=== PATIENT | female | born 1975 | race Caucasian/White ===

== ENCOUNTER 2016-09-19 08:00 | Outpatient (CLI) | payer OTHER | END 2016-09-19 23:59 | DX: R30.0 Dysuria (principal) ==

== ENCOUNTER 2017-05-03 17:36 | Outpatient (CLI) | payer OTHER ==
[2017-05-03] MEDS ORDERED: IOPAMIDOL-300 100 ML VIAL ONE (17:48)
[2017-05-03] MEDS ORDERED: IOPAMIDOL-300 50 ML VIAL ONE (17:48)
[2017-05-03] MEDS ORDERED: IOPAMIDOL-300 100 ML VIAL IVP ONE (20:27)
[2017-05-03] MEDS ORDERED: IOPAMIDOL-300 50 ML VIAL PO ONE (20:27)
--- NOTE | 2017-05-03 20:41 | CT Preliminary Report ---
Exam: CT ABDOMEN/PELVIS W/ IMPRESSION: Negative abdomen and pelvis CT. No acute solid or hollow viscus organ abnormalities to ac count for the patient's presentation. [facility] SITE ID: [id number]
--- NOTE | 2017-05-03 20:43 | CT Report ---
EXAM: CT ABDOMEN AND PELVIS EXAM DATE: 05/03/2017 07:56 PM. CLINICAL HISTORY: Abdominal pain COMPARISONS: None. TECHNIQUE: Routine helical CT imaging was performed through the abdomen and pelvis. IV contrast: 50 M L ISOVUE 300. Enteric contrast: Positive. Reconstructions: Coronal and sagittal. In accordance with CT protocol optimization, one or more of the following dose reduction techniques w ere utilized for this exam: automated exposure control, adjustment of mA and/or KV based on patient s ize, or use of iterative reconstructive technique. FINDINGS: Lung Bases: Unremarkable. Liver: Normal. No masses. Gallbladder/Bile Ducts: Unremarkable. Spleen: There is borderline splenomegaly. Pancreas: Normal. Adrenal Glands: Normal. Kidneys: Normal. No masses or hydronephrosis. Peritoneal Cavity/Bowel: Normal. No free fluid, free air or adenopathy. No masses or acute inflammato ry process. The appendix is well visualized and normal. Pelvic Organs: Patient has undergone . The uterus and adnexa are displaced anteriorly. The u rinary bladder is unremarkable. Vasculature: No aneurysms or other significant abnormality. Bones: No significant abnormality. Other: None. IMPRESSION: Negative abdomen and pelvis CT. No acute solid or hollow viscus organ abnormalities to ac count for the patient's presentation. [facility] Referring Provider Line: [phone] SITE ID: [id number]
== END 2017-05-03 17:37 | disposition home or self-care (01) ==
LOC: DI 17:36
PROVIDERS: ATTEND Family Medicine
DX: R10.31 Right lower quadrant pain (principal); R10.11 Right upper quadrant pain
CPT/HCPCS: 74177; Q9967

== ENCOUNTER 2017-05-07 19:54 | Outpatient (CLI) | payer OTHER | END 2017-05-07 19:55 | disposition home or self-care (01) | LOC: DI 19:54 | PROVIDERS: ATTEND Family Medicine | DX: Z53.9 Procedure and treatment not carried out, unspecified reason (principal) ==

== ENCOUNTER 2017-05-12 12:59 | Outpatient (CLI) | payer OTHER ==
--- NOTE | 2017-05-12 16:06 | Ultrasound Preliminary Report ---
Exam: US ABDOMEN LIMITED IMPRESSION: 1. Small gallstone versus sludge ball or gallbladder wall polyp without other findings of acute dhiraj cystitis. 2. No biliary dilatation. 3. Nonspecific echogenic lesion in the liver abutting dhaval hepatis. Differential diagnosis includes focal fat, hemangioma, or other nonspecific mass. This finding is not clearly identified on the abdom en CT from 05/03/2017 [facility] SITE ID: [id number]
--- NOTE | 2017-05-12 16:09 | Ultrasound Report ---
EXAM: ABDOMEN ULTRASOUND LIMITED, RUQ EXAM DATE: 05/12/2017 03:36 PM. CLINICAL HISTORY: RUQ PAIN. COMPARISON: CT 05/03/2017. TECHNIQUE: Real-time scanning was performed with static images obtained. FINDINGS: Liver: There is a cyst in the left lobe of the liver measuring 0.4 cm in diameter. The parenchyma is heterogeneous. There is an ill-defined echogenic lesion in the left lobe measuring 1.9 x 1.0 x 1.7 cm . No intrahepatic biliary dilatation. 16.8 cm. Main portal vein flow: Hepatopetal. Gallbladder: There is a small non-shadowing density in the gallbladder neck consistent with a non-sha dowing stone, polyp or sludge ball. This does not appear to move. Negative ultrasound Greenberg sign. No shadowing gallstones. Gallbladder wall thickness normal at 1.8 mm. Biliary System: CBD measures 4 mm. No intrahepatic or extrahepatic ductal dilatation. Other: None. IMPRESSION: 1. Small gallstone versus sludge ball or gallbladder wall polyp without other findings of acute dhiraj cystitis. 2. No biliary dilatation. 3. Nonspecific echogenic lesion in the liver abutting dhaval hepatis. Differential diagnosis includes focal fat, hemangioma, or other nonspecific mass. This finding is not clearly identified on the abdom en CT from 05/03/2017 [facility] Referring Provider Line: [phone] SITE ID: [id number]
== END 2017-05-12 13:00 | disposition home or self-care (01) ==
LOC: DI 12:59
PROVIDERS: ATTEND Family Medicine
DX: K76.9 Liver disease, unspecified (principal)
CPT/HCPCS: 76705

== ENCOUNTER 2017-06-08 11:45 | Outpatient (CLI) | payer OTHER ==
--- NOTE | 2017-06-11 15:26 | Mammography Report ---
DATE OF SERVICE: 06/08/2017 DIGITAL SCREENING MAMMOGRAM: 06/08/2017 CLINICAL INDICATION: A 42-year-old with history of benign biopsy, history of late childbearing, for screening. COMPARISON: 02/2016, 11/2013, 05/2013, 11/2012. TECHNIQUE: Routine CC and MLO projections were obtained of the breasts. FINDINGS: The breasts demonstrate scattered fibroglandular densities bilaterally. Biopsy marker in the right lower central breast is stable. No suspicious masses, clustered microcalcifications, or regions of architectural distortion are identified. IMPRESSION: BENIGN FINDINGS. RECOMMENDATION: Routine annual screening unless otherwise clinically indicated. BIRADS CATEGORY 2 - BENIGN FINDINGS. STANDARD QUALIFYING STATEMENTS: 1. This examination was reviewed with the aid of Computer-Aided Detection (CAD). 2. A negative or benign imaging report should not delay biopsy if clinically suspicious findings are present. Consider surgical consultation if warranted. More than 5% of cancers are not identified by imaging. 3. Dense breasts may obscure an underlying neoplasm. TD: 06/11/2017 16:25
== END 2017-06-08 11:46 | disposition home or self-care (01) ==
LOC: DI 11:45
PROVIDERS: ATTEND Family Medicine
DX: Z12.31 Encounter for screening mammogram for malignant neoplasm of breast (principal)
CPT/HCPCS: 77067

== ENCOUNTER 2017-06-21 10:10 | Outpatient (CLI) | payer OTHER | END 2017-06-21 10:11 | disposition home or self-care (01) | LOC: LAB.WCP 10:10 | PROVIDERS: ATTEND Family Medicine | DX: R31.9 Hematuria, unspecified (principal) | CPT/HCPCS: 87086 ==

== ENCOUNTER 2017-06-22 07:29 | Day surgery (SDC) | payer OTHER ==
[~2017-06-22 07:29] MED LIST: ceFAZolin 2 GM/50 ML 2 GM/50 ML BAG IV ONE
[2017-06-22 07:56] LABS: HCG UR QUAL NEGATIVE
[2017-06-22] MEDS ORDERED: LACTATED RINGERS 1,000 ML IV ONE ×2 (08:06→09:40)
[2017-06-22] MEDS ORDERED: BUPIVACAINE 0.25%-EPI 1:200000 PF 30 ML VIAL SUBQ ONE ×2 (09:00)
[2017-06-22] MEDS ORDERED: MIDAZOLAM 2 MG/2 ML VIAL IVP ONE (09:00)
[2017-06-22] MEDS ORDERED: PROPOFOL 200 MG/20 ML VIAL IVP ONE (09:00)
[2017-06-22] MEDS ORDERED: NEOSTIGMINE 1 MG/1 ML 10 ML MDV IVP ONE (09:00)
[2017-06-22] MEDS ORDERED: DEXAMETHASONE 4 MG/ML VIAL IVP ONE (09:00)
[2017-06-22] MEDS ORDERED: ROCURONIUM 50 MG/5 ML VIAL IVP ONE (09:00)
[2017-06-22] MEDS ORDERED: GLYCOPYRROLATE 1 MG/5 ML VIAL IVP ONE (09:00)
[2017-06-22] MEDS ORDERED: KETOROLAC 30 MG/ML VIAL IVP ONE (09:00)
[2017-06-22] MEDS ORDERED: ONDANSETRON 4 MG/2 ML VIAL IVP ONE (09:00)
[2017-06-22] MEDS ORDERED: IOTHALAMATE MEGLUMINE 50 ML VIAL IVP ONE ×2 (09:00)
[2017-06-22] MEDS ORDERED: fentaNYL 100 MCG/2 ML VIAL IVP ONE (09:00)
[2017-06-22] MEDS: HYDROmorphone 1 MG/ML SYRINGE ONE ×3 (10:13→10:23)
[2017-06-22] MEDS ORDERED: ONDANSETRON 4 MG/2 ML VIAL ONE (10:30)
--- NOTE | 2017-06-22 10:31 | XRAY Report ---
DATE OF SERVICE: 06/22/2017 INTRAOPERATIVE CHOLANGIOGRAM: 06/22/2017 CLINICAL INDICATION: Cholecystectomy. FINDINGS: Two images of an intraoperative cholangiogram demonstrate opacification of the common bile duct and proximal intrahepatic ducts. Contrast spills freely into the duodenum. No definite choledocholithiasis is identified. 20 seconds of fluoroscopy time was provided to Dr. Guy; 2 spot images obtained. IMPRESSION: INTRAOPERATIVE IMAGING OF CHOLANGIOGRAM. TD: 06/22/2017 10:30 [email or web address]
--- NOTE | 2017-06-22 10:59 | PROCEDURE REPORT ---
DATE OF SERVICE: 06/22/2017 Physician: Art Guy MD PREOPERATIVE DIAGNOSIS: Symptomatic cholecystitis with cholelithiasis. POSTOPERATIVE DIAGNOSIS: Symptomatic cholecystitis with cholelithiasis. PROCEDURE PERFORMED: Laparoscopic cholecystectomy with intraoperative cholangiogram. OPERATING SURGEON: Dr. Guy. ANESTHESIA: General. INDICATIONS FOR PROCEDURE: The patient is a 42-year-old female who has been having intermittent right upper quadrant abdominal pain. She had an abdominal ultrasound, which revealed a stone versus polyp versus sludge in the neck of the gallbladder. Pain is in right upper quadrant, radiating to her back, consistent with chronic cholecystitis. FINDINGS AT SURGERY: The patient had a chronically inflamed gallbladder. She had a normal intraoperative cholangiogram. PROCEDURE: After informed consent was obtained, the patient was taken to the operating room, placed in supine position. General endotracheal anesthesia was administered. The patient's abdomen was then prepped and draped in the usual sterile fashion. An infraumbilical incision was made in the skin using a scalpel. Prior to making abdominal incision, the skin was injected with local anesthesia. A 5 mm Optiview trocar was then inserted through the incision through the fascia and into the abdominal cavity under direct vision. The abdomen was then insufflated. Three 5 mm ports were then placed in right upper quadrant with the 5 mm port at the umbilicus switched to a 12 mm port. The gallbladder fundus was then grasped and lifted anteriorly and superiorly exposing the triangle of Calot. The peritoneum was then scored in this area with the cystic duct and cystic artery then being identified. Cystic artery was isolated, clipped proximally and distally and then divided. Critical view had been obtained. A clip was then placed across the cystic duct/gallbladder junction with the cystic duct, then being incised. Cholangiogram catheter was then inserted and cholangiogram was performed. This showed normal biliary anatomy without any filling defects being present. Catheter was then withdrawn and clips were then placed across the distal cystic duct with it then being divided. Gallbladder was then dissected off the gallbladder bed, placed in an Endobag and removed through the umbilical port. Right upper quadrant was thoroughly irrigated until the return fluid was clear. There was no bleeding noted from the gallbladder bed. The ports were then removed and no bleeding was noted at the port sites with the abdomen then being desufflated. The umbilical fascial defect was closed using 0 Vicryl suture. Skin incisions were closed using 4-0 Monocryl subcuticular stitch. Dermabond was then placed upon the incision site. The patient was then awakened, extubated, and taken from the operating room in stable condition. ESTIMATED BLOOD LOSS: Less than 5 mL COMPLICATIONS: None. CONDITION OF THE PATIENT IN PROCEDURE: Stable. SPECIMENS: Gallbladder and its contents. DRAINS AND PACKS: None. CLASSIFICATION OF WOUND: Clean/contaminated. TD: 06/22/2017 10:58
[2017-06-22] MEDS ORDERED: HYDROcod/ACETAM 5/325 MG TABLET ONE (11:09)
[2017-06-22 12:44] VITALS: BP 125/80
== END 2017-06-22 07:30 | disposition home or self-care (01) ==
LOC: SDS 07:29
PROVIDERS: ATTEND Surgery
PROC: BF11YZZ Fluoroscopy of Biliary and Pancreatic Ducts using Other Contrast (ICD-10-PCS; 2017-06-22)
PROC: 0FT44ZZ Resection of Gallbladder, Percutaneous Endoscopic Approach (ICD-10-PCS; principal; 2017-06-22 08:30)
DX: K80.10 Calculus of gallbladder with chronic cholecystitis without obstruction (principal); K21.9 Gastro-esophageal reflux disease without esophagitis; J45.909 Unspecified asthma, uncomplicated; I10 Essential (primary) hypertension
CPT/HCPCS: 47563; 74300; 81025; A9270; J0690; J1170; J7120; Q9961

== ENCOUNTER 2018-01-28 13:18 | Outpatient (CLI) | payer OTHER ==
[2018-01-28] MEDS ORDERED: IOPAMIDOL-300 100 ML VIAL ONE (13:49)
--- NOTE | 2018-01-28 15:01 | CT Report ---
Reason: DYSPNEA,PALPITATIONS Procedure Date: 01/28/2018 Accession Number: [id number] / [id number] Procedure: CT - Chest Angio (PE) CPT Code: FULL RESULT: EXAM: CT ANGIOGRAM CHEST EXAM DATE: 01/28/2018 02:21 PM. CLINICAL HISTORY: DYSPNEA,PALPITATIONS. COMPARISON: None. TECHNIQUE: Routine helical imaging was performed through the chest in the pulmonary arterial phase. IV Contrast: 80 cc Isovue-300. Reconstructions: Coronal 3-D MIP reconstructions.Sagittal and coronal. In accordance with CT protocol optimization, one or more of the following dose reduction techniques were utilized for this exam: automated exposure control, adjustment of mA and/or KV based on patient size, or use of iterative reconstructive technique. FINDINGS: Pulmonary Arteries: Diagnostic quality: Adequate through the segmental arteries. No evidence for acute or chronic pulmonary emboli. RV/LV is within normal limits. There is no interventricular septal bowing. There is no reflux of contrast material in the IVC. Lungs/Pleura: There is minimal dependent atelectasis. No consolidation, nodules, or edema. No effusions or pneumothorax. Mediastinum: Normal. No cardiac enlargement or adenopathy. Thoracic Aorta: Unremarkable. Upper Abdomen: There is a slightly bulbous appearance of the mid to inferior anterior left kidney, not well evaluated due to the early phase of contrast. It is difficult to exclude a mass. Cholecystectomy is noted. No bone lesions are seen. IMPRESSION: No evidence of pulmonary embolism or acute aortic syndrome. No other thoracic findings are seen to suggest a cause of the patient's symptoms. There is an asymmetric somewhat bulbous appearance of the mid to inferior anterior left kidney, making it difficult to exclude a mass (series 5 images 150 and 151). This is incompletely evaluated in this early phase of contrast. Recommend additional imaging which could include ultrasound, or dedicated renal CT versus MRI. [facility]
[2018-01-28] MEDS ORDERED: IOPAMIDOL-300 100 ML VIAL IVP ONE (15:14)
== END 2018-01-28 13:19 | disposition home or self-care (01) ==
LOC: DI 13:18
PROVIDERS: ATTEND Family Medicine
DX: R06.00 Dyspnea, unspecified (principal); R00.2 Palpitations
CPT/HCPCS: 71275; Q9967

== ENCOUNTER 2018-02-07 10:40 | Outpatient (CLI) | payer OTHER ==
[2018-02-07] MEDS ORDERED: IOPAMIDOL-300 100 ML VIAL ONE (10:49)
[2018-02-07] MEDS ORDERED: IOPAMIDOL-300 100 ML VIAL IVP ONE (11:33)
--- NOTE | 2018-02-07 15:10 | CT Report ---
Reason: ABNORMAL RADIOLOGIC FINDINGS ON LEFT KIDNEY Procedure Date: 02/07/2018 Accession Number: [id number] / [id number] Procedure: CT - Abdomen/Pelvis W/WO CPT Code: FULL RESULT: EXAM: CT ABDOMEN AND PELVIS WITHOUT AND WITH CONTRAST EXAM DATE: 02/07/2018 11:30 AM. HISTORY: ABNORMAL RADIOLOGIC FINDINGS ON LEFT KIDNEY. COMPARISON: 01/28/2018, 05/03/2017. TECHNIQUE: Routine helical CT imaging was performed through the abdomen and pelvis before and after administration of IV contrast: ISOVUE 300 100mL. Enteric contrast: No. Reconstruction: Coronal and sagittal. In accordance with CT protocol optimization, one or more of the following dose reduction techniques were utilized for this exam: automated exposure control, adjustment of mA and/or KV based on patient size, or use of iterative reconstructive technique. FINDINGS: Lung Bases: Unremarkable. Liver: Normal. Gallbladder/Bile Ducts: Cholecystectomy. Spleen: Borderline enlarged. Pancreas: Normal. Adrenal Glands: Normal. 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 No mass. There is a mid cortical bar with mild lobulation in the left kidney accounting for the bulbous appearance. No hydronephrosis or stone. The right kidney is normal. Bladder: Unremarkable. No wall thickening or mass. No evidence of a ureterocele. Uterus and ovaries: Unremarkable. Peritoneal Cavity/Bowel: Normal caliber bowel. No free fluid, free air or adenopathy. Vasculature: No aneurysms or other significant abnormality. Bones: No significant abnormality. IMPRESSION: No renal mass. 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 [facility]
== END 2018-02-07 10:41 | disposition home or self-care (01) ==
LOC: DI 10:40
PROVIDERS: ATTEND Family Medicine
DX: R93.422 Abnormal radiologic findings on diagnostic imaging of left kidney (principal)
CPT/HCPCS: 74178; Q9967

== ENCOUNTER 2018-02-11 09:12 | Emergency (ER) | payer OTHER ==
--- NOTE | 2018-02-11 09:36 | ED Physician Documentation ---
PD HPI CHEST PAIN - Stated complaint Stated Complaint: CHEST PX/TINGLING ON HAND - Chief complaint Chief Complaint: General - History obtained from History obtained from: Patient, Family - History of Present Illness Timing - onset: How many weeks ago (1) Timing - onset during: Rest Timing - duration: Weeks (1) Timing - details: Gradual onset, Still present, Waxing and waning Pain level max: 4 Pain level now: 4 Quality: Pressure, Tightness Location: Substernal Radiation: Neck, Left upper extremity Worsened by: Exertion, Palpation, Position Associated symptoms: Shortness of air Similar symptoms before: No diagnosis Recently seen: Clinic - Additional information Additional information: 43-year-old female with history of asthma has developed some shortness of breath about 2 weeks ago and with that she took her inhaler began to feel some palpitations in her chest and went into see her doctor. She had a positive d- dimer and had a CT scan pulmonary angiogram done which was negative for pulmonary embolism but did show a mass on her left kidney. 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 This morning she developed some substernal chest pain that is radiated up into her neck and into her left arm and this is associated with some shortness of breath. She is producing some phlegm with her cough. Review of Systems Constitutional: denies: Fever, Chills, Myalgias Eyes: denies: Decreased vision Ears: denies: Ear pain Nose: reports: Rhinorrhea / runny nose, Congestion Throat: reports: Sore throat Cardiac: reports: Chest pain / pressure. denies: Palpitations, Pedal edema, Calf pain Respiratory: reports: Dyspnea, Cough GI: denies: Abdominal Pain, Nausea, Vomiting : denies: Dysuria, Frequency PD PAST MEDICAL HISTORY - Past Medical History Cardiovascular: High cholesterol, Murmur Respiratory: Asthma Endocrine/Autoimmune: None GI: None : None HEENT: None Psych: None Musculoskeletal: None Derm: None - Past Surgical History Ortho: Other /BEHAVIORAL THERAPIST: section - Present Medications Home Medications: Ambulatory Orders Medication Instructions Recorded Confirmed Albuterol Sulfate [Proair Hfa 1 - 2 puffs INH Q4H PRN 06/20/17 06/22/17 Inhaler] Ascorbic Acid [Vitamin C] 1,000 mg PO DAILY 06/20/17 06/22/17 Cetirizine [ZyrTEC] 10 mg PO DAILY 06/20/17 06/22/17 Cholecalciferol (Vitamin D3) 4,000 unit PO DAILY 06/20/17 06/22/17 [Vitamin D3] Famotidine [Pepcid] 20 mg PO ONCE 06/20/17 06/22/17 Albuterol Sulf [Ventolin Hfa 1 - 2 puffs INH Q4HR PRN #1 inhaler 02/11/18 Inhaler] Azithromycin [Zithromax] 250 mg PO DAILY #6 tablet 02/11/18 - Allergies Allergies/Adverse Reactions: Allergies Allergy/AdvReac Type Severity Reaction Status Date / Time No Known Drug Allergies Allergy Verified 06/20/17 12:19 PD ED PE NORMAL - Vitals Vital signs reviewed: Yes (normal ) - General General: Alert and oriented X 3, No acute distress, Well developed/nourished - HEENT HEENT: Atraumatic, PERRL, EOMI, Moist mucous membranes, Pharynx benign, Dentition benign, Other (right TM is inflamed with intact landmarks. The left is clear. ) - Neck Neck: Supple, no meningeal sign, No bony TTP - Cardiac Cardiac: RRR, No murmur - Respiratory Respiratory: No respiratory distress, Other (diminished breath sounds bilaterally with chest wall tenderness to the sternum. ) - Abdomen Abdomen: Soft, Non tender - Back Back: No CVA TTP, No spinal TTP - Derm Derm: Normal color, Warm and dry, No rash - Extremities Extremities: No deformity, No edema - Neuro Neuro: Alert and oriented X 3, soda fountain manager 2-12 intact, No motor deficit, No sensory deficit, Normal speech Eye Opening: Spontaneous Motor: Obeys Commands Verbal: Oriented GCS Score: 15 - Psych Psych: Normal mood, Normal affect Results - Vitals Vitals: Vital Signs - 24 hr 02/11/18 02/11/18 02/11/18 09:16 09:30 10:00 Heart Rate 70 68 64 Respiratory 18 10 L 11 L Rate Blood Pressure 135/79 H 118/66 O2 Saturation 100 100 100 02/11/18 12:28 Heart Rate 67 Respiratory 12 Rate Blood Pressure 112/67 O2 Saturation 99 Oxygen O2 Source Room air - EKG (time done) 0917 Rate: Rate (enter#) (70) Rhythm: NSR Compare to prior EKG: Old EKG unavailable Computer interpretation: Agree with computer - Labs Labs: Laboratory Tests 02/11/18 02/11/18 02/11/18 09:27 09:27 09:27 WBC 7.4 RBC 4.73 Hgb 15.2 Hct 42.0 MCV 88.8 MCH 32.2 H MCHC 36.3 H RDW 13.9 Plt Count 271 MPV 9.9 Neut # (Auto) 4.4 Lymph # (Auto) 1.9 Major # (Auto) 0.7 Eos # (Auto) 0.3 Baso # (Auto) 0.1 Absolute Nucleated RBC 0.00 Nucleated RBC % 0.0 Sodium 136 Potassium 4.0 Chloride 100 L Carbon Dioxide 26 Anion Gap 10.0 BUN 13 Creatinine 0.7 Estimated GFR (MDRD) 90 Glucose 102 H Calcium 9.2 Total Bilirubin 1.2 H AST 22 ALT 21 Alkaline Phosphatase 42 Troponin I < 0.04 Total Protein 7.6 Albumin 4.5 Globulin 3.1 Albumin/Globulin Ratio 1.5 Lipase 37 - Rads (name of study) 2 veiw chest Radiology: Prelim report reviewed (Impression: No focal lung consolidation or pleural effusions.), EMP read indepedently, See rad report PD MEDICAL DECISION MAKING - ED course Complexity details: reviewed results, re-evaluated patient, considered differential, d/w patient, d/w family ED course: 43-year-old female with a history of asthma has had an increase in her symptoms about 2 weeks ago and started using her inhaler. When she developed side effects of the inhaler she sought guidance counselor and with an elevated D-dimer she had CT angio. There is no pathology in the chest on this study and there is again no pathology in the chest today. She has OM on exam and she has some improvement in her dyspena with the decadron alone without a duoneb treatment. She is treated as asthmatic bronchitis with OM as the trigger and the OM is treated. - Sepsis Event Vital Signs: Vital Signs - 24 hr 02/11/18 02/11/18 02/11/18 09:16 09:30 10:00 Heart Rate 70 68 64 Respiratory 18 10 L 11 L Rate Blood Pressure 135/79 H 118/66 O2 Saturation 100 100 100 02/11/18 12:28 Heart Rate 67 Respiratory 12 Rate Blood Pressure 112/67 O2 Saturation 99 Oxygen O2 Source Room air Departure - Departure Disposition: Home, Self Care Clinical Impression: Asthmatic bronchitis with acute exacerbation Qualifiers: Asthma severity: mild Asthma persistence: intermittent Qualified Code(s): J45.21 - Mild intermittent asthma with (acute) exacerbation Condition: Stable Instructions: ED Bronchitis Asthmatic, ED Otitis Media Acute Adult Follow-Up: Angelica Schrader MD [Primary Care Provider] - Prescriptions: Albuterol Sulf [Ventolin Hfa Inhaler] 1 - 2 puffs INH Q4HR PRN #1 inhaler PRN Reason: Shortness Of Air/Wheezing Azithromycin [Zithromax] 250 mg PO DAILY #6 tablet
[2018-02-11 10:22] LABS: BASOPHILS # (AUTO) 0.1 10^3/uL (0.0-0.1); BASOPHILS % (AUTO) 1.4 %; EOSINOPHILS # (AUTO) 0.3 10^3/uL (0.0-0.7); EOSINOPHILS % (AUTO) 4.7 %; HGB - HEMOGLOBIN 15.2 g/dL (12.0-16.0); LYMPHOCYTES # (AUTO) 1.9 10^3/uL (1.5-3.5); LYMPHOCYTES % (AUTO) 25.1 %; MEAN CORPUSCULAR HEMOGLOBIN 32.2 pg (27.0-31.0); MEAN CORPUSCULAR HGB CONC 36.3 g/dL (32.0-36.0); MEAN CORPUSCULAR VOLUME 88.8 fL (81.0-99.0); MEAN PLATELET VOLUME 9.9 fL (7.9-10.8); MONOCYTES # (AUTO) 0.7 10^3/uL (0.0-1.0); MONOCYTES % (AUTO) 9.3 %; NEUTROPHILS # (AUTO) 4.4 10^3/uL (1.5-6.6); NEUTROPHILS % (AUTO) 59.5 %; PLT - PLATELET COUNT 271 10^3/uL (130-450); RED BLOOD COUNT 4.73 10^6/uL (4.20-5.40); RED CELL DISTRIBUTION WIDTH 13.9 % (12.0-15.0); WHITE BLOOD COUNT 7.4 x10^3/uL (4.8-10.8)
[2018-02-11] MEDS ORDERED: DEXAMETHASONE 10 MG/ML VIAL IVP STA (10:23)
[2018-02-11 10:36] LABS: ALBUMIN 4.5 g/dL (3.2-5.5); ALBUMIN/GLOBULIN RATIO 1.5 (1.0-2.2); BILIRUBIN,TOTAL 1.2 mg/dL (0.2-1.0); CALCIUM 9.2 mg/dL (8.5-10.3); CREATININE 0.7 mg/dL (0.4-1.0); TOTAL PROTEIN 7.6 g/dL (6.7-8.2)
--- NOTE | 2018-02-11 10:59 | XRAY Report ---
Reason: left chest pain Procedure Date: 02/11/2018 Accession Number: [id number] / [id number] Procedure: XR - Chest 2 View X-Ray CPT Code: 14962 FULL RESULT: EXAM: CHEST RADIOGRAPHY EXAM DATE: 02/11/2018 10:38 AM. CLINICAL HISTORY: Left chest pain. COMPARISON: CT 01/28/2018. TECHNIQUE: 2 views. FINDINGS: Lungs/Pleura: No focal lung consolidation. No pleural effusion. No pneumothorax. Mediastinum: Cardiac silhouette size appears unremarkable. Other: None. IMPRESSION: No focal lung consolidation or pleural effusions. [facility]
[2018-02-11 12:28] VITALS: BP 112/67
== END 2018-02-11 13:08 | disposition home or self-care (01) ==
LOC: ED 09:12
DX: J45.21 Mild intermittent asthma with (acute) exacerbation (principal)
CPT/HCPCS: 36415; 71046; 80053; 83690; 84484; 85025; 93005; 96374; 99283

== ENCOUNTER 2018-10-29 12:41 | Outpatient (CLI) | payer OTHER ==
[2018-10-29 19:05] LABS: BASOPHILS # (AUTO) 0.1 10^3/uL (0.0-0.1); BASOPHILS % (AUTO) 1.1 %; EOSINOPHILS # (AUTO) 0.2 10^3/uL (0.0-0.7); EOSINOPHILS % (AUTO) 3.1 %; HGB - HEMOGLOBIN 14.2 g/dL (12.0-16.0); LYMPHOCYTES % (AUTO) 31.2 %; MEAN CORPUSCULAR VOLUME 91.6 fL (81.0-99.0); MEAN PLATELET VOLUME 10.3 fL (7.9-10.8); MONOCYTES # (AUTO) 0.5 10^3/uL (0.0-1.0); MONOCYTES % (AUTO) 8.1 %; NEUTROPHILS # (AUTO) 3.6 10^3/uL (1.5-6.6); NEUTROPHILS % (AUTO) 56.5 %; PLT - PLATELET COUNT 289 10^3/uL (130-450); RED BLOOD COUNT 4.44 10^6/uL (4.20-5.40); WHITE BLOOD COUNT 6.3 x10^3/uL (4.8-10.8)
[2018-10-29 19:25] LABS: ALBUMIN 4.1 g/dL (3.2-5.5); ALBUMIN/GLOBULIN RATIO 1.5 (1.0-2.2); BILIRUBIN,TOTAL 1.3 mg/dL (0.2-1.0); CALCIUM 9.3 mg/dL (8.5-10.3); CREATININE 0.7 mg/dL (0.4-1.0); PLATELET ESTIMATE, MANUAL NORMAL (130-450,000) (NORMAL); PLATELET MORPHOLOGY 2+ GIANT PLATELETS (NORMAL); RBC MORPHOLOGY (MULTIPLE) NORMAL APPEARANCE (NORMAL); TOTAL PROTEIN 6.9 g/dL (6.7-8.2)
== END 2018-10-29 12:42 | disposition home or self-care (01) ==
LOC: LAB.WCP 12:41
PROVIDERS: ATTEND Family Medicine
DX: R10.11 Right upper quadrant pain (principal); R60.0 Localized edema
CPT/HCPCS: 36415; 80053; 82150; 83690; 85025

== ENCOUNTER 2018-11-04 09:34 | Outpatient (CLI) | payer OTHER ==
--- NOTE | 2018-11-04 11:06 | Ultrasound Report ---
Reason: ABDOMINAL PAIN,RIGHT UPPER QUADRANT Procedure Date: 11/04/2018 Accession Number: [id number] / [id number] Procedure: US - Abdomen Complete CPT Code: FULL RESULT: EXAM: ABDOMEN ULTRASOUND EXAM DATE: 11/04/2018 10:31 AM. CLINICAL HISTORY: Abdominal pain, right upper quadrant. COMPARISON: ABDOMEN/PELVIS W/WO 02/07/2018 11:08 AM. TECHNIQUE: Real-time scanning was performed with static images obtained. FINDINGS: Liver: Prominent in size with coarsened echotexture and mildly increased echogenicity. This decreases sensitivity for underlying masses. Within this setting, a geographically hyperechoic-appearing 2.6 x 1.8 x 2.3 cm focus at the region of the dhaval hepatis is felt to represent variant appearance of the normal connective tissue residing in this area possibly in the setting of focal fatty infiltration. Otherwise, no suspicious mass is detected. The liver measures at least 20.5 cm. Main portal vein flow: Hepatopetal. Gallbladder: Surgically absent. Biliary System: Common bile duct measures 6 mm. No intrahepatic or extrahepatic ductal dilatation. Pancreas: Visualized portion is unremarkable. Kidneys: Right: 10.5 cm longitudinally. Normal. No contour-deforming mass, stones, or hydronephrosis. Left: 13.6 cm longitudinally. No hydronephrosis is seen in either of the duplicated collecting systems. No calculi are detected. Spleen: 14 cm. Splenomegaly. Aorta and Inferior Vena Cava: Unremarkable. Other: None. IMPRESSION: Abnormal parenchymal echogenicity of the liver, can be seen with hepatic steatosis. Splenomegaly. Echogenic region at the dhaval hepatis of the liver is felt to represent a combination of the normal connective tissue in this region and possibly focal fatty infiltration, not characterized fully on this study. No concerning findings are made on the multiphase CT of the abdomen in January 2018 in this region. Recommendation: Given the abnormal appearance of the liver and splenomegaly, correlation to risk factors for cirrhosis/HCC and laboratory values should be used to determine whether advanced imaging characterization of the liver is warranted. Alternatively, attention on follow-up imaging. [facility]
== END 2018-11-04 09:35 | disposition home or self-care (01) ==
LOC: DI 09:34
PROVIDERS: ATTEND Family Medicine
DX: R93.5 Abnormal findings on diagnostic imaging of other abdominal regions, including retroperitoneum (principal); R10.11 Right upper quadrant pain
CPT/HCPCS: 76700

== ENCOUNTER 2018-11-05 07:50 | Outpatient (CLI) | payer OTHER | END 2018-11-05 07:51 | disposition home or self-care (01) | LOC: DI 07:50 | PROVIDERS: ATTEND Family Medicine | DX: R06.01 Orthopnea (principal); R00.2 Palpitations | CPT/HCPCS: 93306 ==

== ENCOUNTER 2018-11-08 11:00 | Outpatient (CLI) | payer OTHER ==
[2018-11-09 11:36] LABS: HEPATITIS B SURFACE ANTIGEN NON-REACTIVE (NON-REACTIVE)
[2018-11-09 11:37] LABS: HEPATITIS C ANTIBODY NON-REACTIVE (NON-REACTIVE)
== END 2018-11-08 11:01 | disposition home or self-care (01) ==
LOC: LAB.WCP 11:00
PROVIDERS: ATTEND Family Medicine
DX: R10.11 Right upper quadrant pain (principal)
CPT/HCPCS: 36415; 86317; 86704; 86709; 86803; 87340